=== PATIENT | male | born 1955 | race Hispanic/Latino ===

== ENCOUNTER 2019-09-02 17:20 | Emergency (ER) | payer MEDICAID ==
--- NOTE | 2019-09-02 18:27 | Emergency Department Report ---
ED Psych HPI - General Chief Complaint: Psych Stated Complaint: ETOH Time Seen by Provider: 09/02/19 18:17 Source: patient, EMS Mode of arrival: Stretcher Limitations: No Limitations - History of Present Illness Initial Comments: 63-year-old male with a past medical history of depression presents to the hospital with suicidal homicidal ideation x1 week. Patient has a plan to hang himself patient was picked up [place] a gas station. Patient was listed that patient was homeless but patient states he has a place to live. He states he has a previous diagnosis of depression but he is only had hallucinations for the past 1 week. He denies any physical complaints or alcohol or drug abuse. He drinks alcohol on occasion he denies recent use. - Related Data Home Medications Medication Instructions Recorded Confirmed Last Taken No Known Home Medications [No 09/02/19 09/02/19 Unknown Reported Home Medications] Allergies Allergy/AdvReac Type Severity Reaction Status Date / Time No Known Allergies Allergy Verified 09/02/19 17:45 ED Review of Systems ROS: Stated complaint: ETOH Other details as noted in HPI Comment: All other systems reviewed and negative ED Past Medical Hx - Past Medical History Previous Medical History?: Yes Hx Psychiatric Treatment: Yes (Depression) - Surgical History Past Surgical History?: No - Social History Smoking Status: Never Smoker Substance Use Type: None - Medications Home Medications: Home Medications Medication Instructions Recorded Confirmed Last Taken Type No Known Home Medications [No 09/02/19 09/02/19 Unknown History Reported Home Medications] ED Physical Exam - General Limitations: No Limitations - Other Other exam information: General: No acute distress Head: Atraumatic Eyes: normal appearance ENT: Moist mucous membranes Neck: Normal appearance, no midline tenderness Chest: Clear to auscultation bilaterally CV: Regular rate and rhythm Abdomen: Soft, normal bowel sounds, nontender, nondistended, no rebound or guarding Back: Normal inspection Extremity: Normal inspection, full range of motion Neuro: Alert O x 3, no facial asymmetry, speech clear, no gross motor sensory deficit Psych: Patient was initially yelling a and threatening to kill staff. At time of my evaluation he is resting and cooperative Skin: No rash ED Course Vital Signs 09/02/19 09/02/19 09/02/19 17:52 20:19 21:31 Temperature 97.3 F L 98.4 F Pulse Rate 75 74 Respiratory 16 16 16 Rate Blood Pressure 113/68 111/52 [Left] O2 Sat by Pulse 97 97 97 Oximetry - Reevaluation(s) Reevaluation #1: 09/02/19 20:29 Patient had an outburst in the ED and was trying to leave the department. Patient was placed in seclusion and provided Geodon 20 mg IM. 1013 and CIWA protocol will be continued ED Medical Decision Making - Lab Data Result diagrams: 09/02/19 18:27 09/02/19 18:27 Lab Results 09/02/19 09/02/19 09/02/19 Range/Units 18:27 18:27 18:27 WBC 6.9 (4.5-11.0) K/mm3 RBC 4.60 (3.65-5.03) M/mm3 Hgb 14.4 (11.8-15.2) gm/dl Hct 42.0 (35.5-45.6) % MCV 91 (84-94) fl MCH 31 (28-32) pg MCHC 34 (32-34) % RDW 15.1 (13.2-15.2) % Plt Count 212 (140-440) K/mm3 Lymph % (Auto) 29.2 (13.4-35.0) % Parke % (Auto) 7.9 H (0.0-7.3) % Eos % (Auto) 1.3 (0.0-4.3) % Baso % (Auto) 1.1 (0.0-1.8) % Lymph # 2.0 (1.2-5.4) K/mm3 Parke # 0.5 (0.0-0.8) K/mm3 Eos # 0.1 (0.0-0.4) K/mm3 Baso # 0.1 (0.0-0.1) K/mm3 Seg Neutrophils % 60.5 (40.0-70.0) % Seg Neutrophils # 4.2 (1.8-7.7) K/mm3 Sodium 146 H (137-145) mmol/L Potassium 3.1 L (3.6-5.0) mmol/L Chloride 107.0 (98-107) mmol/L Carbon Dioxide 23 (22-30) mmol/L Anion Gap 19 mmol/L BUN 12 (9-20) mg/dL Creatinine 0.9 (0.8-1.5) mg/dL Estimated GFR > 60 ml/min BUN/Creatinine Ratio 13 % Glucose 62 L (75-100) mg/dL Calcium 8.7 (8.4-10.2) mg/dL Urine Color (Yellow) Urine Turbidity (Clear) Urine pH (5.0-7.0) Ur Specific [place] (1.003-1.030) Urine Protein (Negative) mg/dL Urine Glucose (UA) (Negative) mg/dL Urine Ketones (Negative) mg/dL Urine Blood (Negative) Urine Nitrite (Negative) Urine Bilirubin (Negative) Urine Urobilinogen (<2.0) mg/dL Ur Leukocyte Esterase (Negative) Urine WBC (Auto) (0.0-6.0) /HPF Urine RBC (Auto) (0.0-6.0) /HPF Urine Mucus /HPF Salicylates < 0.3 L (2.8-20.0) mg/dL Urine Opiates Screen Urine Methadone Screen Acetaminophen (10.0-30.0) ug/mL Ur Barbiturates Screen Ur Phencyclidine Scrn Ur Amphetamines Screen U Benzodiazepines Scrn Urine Cocaine Screen U Marijuana (THC) Screen Drugs of Abuse Note Plasma/Serum Alcohol (0-0.07) % 09/02/19 09/02/19 09/02/19 Range/Units 18:27 18:27 21:28 WBC (4.5-11.0) K/mm3 RBC (3.65-5.03) M/mm3 Hgb (11.8-15.2) gm/dl Hct (35.5-45.6) % MCV (84-94) fl MCH (28-32) pg MCHC (32-34) % RDW (13.2-15.2) % Plt Count (140-440) K/mm3 Lymph % (Auto) (13.4-35.0) % Parke % (Auto) (0.0-7.3) % Eos % (Auto) (0.0-4.3) % Baso % (Auto) (0.0-1.8) % Lymph # (1.2-5.4) K/mm3 Parke # (0.0-0.8) K/mm3 Eos # (0.0-0.4) K/mm3 Baso # (0.0-0.1) K/mm3 Seg Neutrophils % (40.0-70.0) % Seg Neutrophils # (1.8-7.7) K/mm3 Sodium (137-145) mmol/L Potassium (3.6-5.0) mmol/L Chloride (98-107) mmol/L Carbon Dioxide (22-30) mmol/L Anion Gap mmol/L BUN (9-20) mg/dL Creatinine (0.8-1.5) mg/dL Estimated GFR ml/min BUN/Creatinine Ratio % Glucose (75-100) mg/dL Calcium (8.4-10.2) mg/dL Urine Color Yellow (Yellow) Urine Turbidity Clear (Clear) Urine pH 5.0 (5.0-7.0) Ur Specific [place] 1.012 (1.003-1.030) Urine Protein <15 mg/dl (Negative) mg/dL Urine Glucose (UA) Neg (Negative) mg/dL Urine Ketones Tr (Negative) mg/dL Urine Blood Neg (Negative) Urine Nitrite Neg (Negative) Urine Bilirubin Neg (Negative) Urine Urobilinogen < 2.0 (<2.0) mg/dL Ur Leukocyte Esterase Neg (Negative) Urine WBC (Auto) 1.0 (0.0-6.0) /HPF Urine RBC (Auto) 2.0 (0.0-6.0) /HPF Urine Mucus Few /HPF Salicylates (2.8-20.0) mg/dL Urine Opiates Screen Urine Methadone Screen Acetaminophen < 5.0 L (10.0-30.0) ug/mL Ur Barbiturates Screen Ur Phencyclidine Scrn Ur Amphetamines Screen U Benzodiazepines Scrn Urine Cocaine Screen U Marijuana (THC) Screen Drugs of Abuse Note Plasma/Serum Alcohol 0.24 H (0-0.07) % 09/02/19 Range/Units 21:28 WBC (4.5-11.0) K/mm3 RBC (3.65-5.03) M/mm3 Hgb (11.8-15.2) gm/dl Hct (35.5-45.6) % MCV (84-94) fl MCH (28-32) pg MCHC (32-34) % RDW (13.2-15.2) % Plt Count (140-440) K/mm3 Lymph % (Auto) (13.4-35.0) % Parke % (Auto) (0.0-7.3) % Eos % (Auto) (0.0-4.3) % Baso % (Auto) (0.0-1.8) % Lymph # (1.2-5.4) K/mm3 Parke # (0.0-0.8) K/mm3 Eos # (0.0-0.4) K/mm3 Baso # (0.0-0.1) K/mm3 Seg Neutrophils % (40.0-70.0) % Seg Neutrophils # (1.8-7.7) K/mm3 Sodium (137-145) mmol/L Potassium (3.6-5.0) mmol/L Chloride (98-107) mmol/L Carbon Dioxide (22-30) mmol/L Anion Gap mmol/L BUN (9-20) mg/dL Creatinine (0.8-1.5) mg/dL Estimated GFR ml/min BUN/Creatinine Ratio % Glucose (75-100) mg/dL Calcium (8.4-10.2) mg/dL Urine Color (Yellow) Urine Turbidity (Clear) Urine pH (5.0-7.0) Ur Specific [place] (1.003-1.030) Urine Protein (Negative) mg/dL Urine Glucose (UA) (Negative) mg/dL Urine Ketones (Negative) mg/dL Urine Blood (Negative) Urine Nitrite (Negative) Urine Bilirubin (Negative) Urine Urobilinogen (<2.0) mg/dL Ur Leukocyte Esterase (Negative) Urine WBC (Auto) (0.0-6.0) /HPF Urine RBC (Auto) (0.0-6.0) /HPF Urine Mucus /HPF Salicylates (2.8-20.0) mg/dL Urine Opiates Screen Presumptive negative Urine Methadone Screen Presumptive negative Acetaminophen (10.0-30.0) ug/mL Ur Barbiturates Screen Presumptive negative Ur Phencyclidine Scrn Presumptive negative Ur Amphetamines Screen Presumptive negative U Benzodiazepines Scrn Presumptive negative Urine Cocaine Screen Presumptive negative U Marijuana (THC) Screen Presumptive positive Drugs of Abuse Note Disclamer Plasma/Serum Alcohol (0-0.07) % - Medical Decision Making Patient acutely intoxicated expresses SI and HI and required Geodon for psych osis and combative behavior while in the ED. Patient was more cooperative after Geodon and provided food to eat and p.o. potassium for mild hypokalemia Patient is medically cleared and awaiting psychiatric evaluation CIWA protocol has been initiated - Differential Diagnosis Psychosis, depression, HI, SI Critical Care Time: No Critical care attestation.: If time is entered above; I have spent that time in minutes in the direct care of this critically ill patient, excluding procedure time. ED Disposition Clinical Impression: Alcohol intoxication, Psychoses, Suicidal ideations, Homicidal thoughts, Medical clearance for psychiatric admission Disposition: [id number] PSY HOSP/PSY UNIT Is pt being admited?: No Condition: Stable Time of Disposition: 22:17
[2019-09-02 18:40] LABS: Basophils # (Auto) 0.1 K/mm3 (0.0-0.1); Basophils % (Auto) 1.1 % (0.0-1.8); Eosinophils # (Auto) 0.1 K/mm3 (0.0-0.4); Eosinophils % (Auto) 1.3 % (0.0-4.3); Hemoglobin 14.4 gm/dl (11.8-15.2); Lymphocytes % (Auto) 29.2 % (13.4-35.0); Mean Corpuscular HGB Conc 34 % (32-34); Mean Corpuscular Volume 91 fl (84-94); Monocytes # (Auto) 0.5 K/mm3 (0.0-0.8); Monocytes % (Auto) 7.9 % (0.0-7.3); Platelet Count 212 K/mm3 (140-440); Red Cell Distribution Width 15.1 % (13.2-15.2)
[2019-09-02 18:59] LABS: BUN/Creatinine Ratio 13; Blood Urea Nitrogen 12 mg/dL (9-20); Calcium 8.7 mg/dL (8.4-10.2); Hemolysis Index 10
[2019-09-02] MEDS ORDERED: LORazepam 2 MG TAB PO PRN ×2 (19:42)
[2019-09-02] MEDS ORDERED: ZIPRASIDONE MESYLATE 20 MG VIAL IM ONE (20:29)
[2019-09-02 21:49] LABS: Bilirubin,Urine NEG (Negative); Blood,Urine NEG (Negative); Color,Urine Yellow (Yellow); Mucus,Urine FEW /HPF; Protein,Urine <15 mg/dL mg/dL (Negative); Urobilinogen,Urine < 2.0 mg/dL (<2.0)
[2019-09-02 21:55] LABS: Amphetamine Screen,Urine PRESUMPTIVE NEGATIVE; Benzodiazepines Screen,Urine PRESUMPTIVE NEGATIVE; Cocaine Screen,Urine PRESUMPTIVE NEGATIVE; Methadone Screen,Urine PRESUMPTIVE NEGATIVE; Opiate Screen,Urine PRESUMPTIVE NEGATIVE
[2019-09-02 22:10] LABS: Cannabinoid Screen,Urine PRESUMPTIVE POSITIVE
[2019-09-02] MEDS ORDERED: POTASSIUM CHLORIDE ER 20 MEQ TAB PO ONE (22:15)
[2019-09-03 13:39] LABS: Alanine Aminotransferase 9 units/L (7-56)
[2019-09-03] MEDS ORDERED: POTASSIUM CHLORIDE ER 20 MEQ TAB PO ONE (19:37)
[2019-09-03 19:58] VITALS: BP 141/57
[2019-09-03] MEDS ORDERED: ACETAMINOPHEN 325 MG TAB ONE (20:08)
[2019-09-03] MEDS ORDERED: ACETAMINOPHEN 325 MG TAB PO ONE (20:09)
== END 2019-09-03 21:13 ==
LOC: ED 17:20 → EEVIPCON 17:20 → ED 09-03 21:13
DX: F10.129 Alcohol abuse with intoxication, unspecified (principal); F29 Unspecified psychosis not due to a substance or known physiological condition; R45.851 Suicidal ideations; R45.850 Homicidal ideations; Z04.6 Encounter for general psychiatric examination, requested by authority; F32.9 Major depressive disorder, single episode, unspecified
CPT/HCPCS: 36415; 80048; 80307; 81001; 82962; 84450; 84460; 85025; 96372; 99285; J3486; 80320; G0480